=== PATIENT | male | born 1985 | race Caucasian/White ===

== ENCOUNTER 2023-06-16 03:21 | Emergency (ER) | payer SELFPAY ==
[~2023-06-16] VITALS: Ht 177.8 cm; Wt 94.7 kg
[2023-06-16 03:27] VITALS: BP 120/96; PULSE 108; RESP 18; TEMP 98.1; O2SAT 97
== END 2023-06-16 07:14 | disposition left against medical advice (07) ==
LOC: ER 03:23
DX: R25.1 Tremor, unspecified (principal); Z53.21 Procedure and treatment not carried out due to patient leaving prior to being seen by health care provider
CPT/HCPCS: 82948; 99281